=== PATIENT | female | born 1995 | race Caucasian/White ===

== ENCOUNTER → 2025-01-22 10:00 | Outpatient (REF) | payer BC, SELFPAY ==
[2025-01-22 12:45] LABS: ALT (SGPT) 18 U/L (0-35); AST (SGOT) 22 U/L (14-36); Albumin 5.1 g/dl (3.5-5.0); Alkaline Phosphatase 46 U/L (38-126); Blood Urea Nitrogen 13 mg/dl (7-17); Calcium 9.5 mg/dl (8.4-10.2); Carbon Dioxide 30 mmol/L (22-30); Chloride 107 mmol/L (98-107); Glucose 83 mg/dl (70-99); HDL Cholesterol 72 mg/dl; LDL Cholesterol, Calculated 90 mg/dl; Potassium 4.1 mmol/L (3.5-5.1); Sodium 141 mmol/L (135-145); Total Bilirubin 0.6 mg/dl (0.2-1.3); Total Cholesterol 179 mg/dl (50-199); Total Protein 7.6 g/dl (6.3-8.2); Triglyceride 88 mg/dl (10-149); Very Low Density Lipoprotein 17 mg/dl (0-30); eGFR > 60.00
[2025-01-23 22:55] LABS: Clam <0.10 kU/L (<=0.34); Codfish <0.10 kU/L (<=0.34); Corn <0.10 kU/L (<=0.34); Egg White <0.10 kU/L (<=0.34); IgE 12 kU/L (<=214); Milk (Cow's) <0.10 kU/L (<=0.34); Peanut <0.10 kU/L (<=0.34); Scallop <0.10 kU/L (<=0.34); Shrimp <0.10 kU/L (<=0.34); Soybean <0.10 kU/L (<=0.34); Walnut/Black Walnut <0.10 kU/L (<=0.34); Wheat <0.10 kU/L (<=0.34)
== END ==
LOC: HWLAB 10:00
PROVIDERS: FAMILY PHYSICIAN Physician Assistant
DX: K58.0 Irritable bowel syndrome with diarrhea (principal); E78.2 Mixed hyperlipidemia
CPT/HCPCS: 36415; 80053; 80061; 82785; 86003